=== PATIENT | male | born 1990 | race Caucasian/White ===

== ENCOUNTER 2024-04-14 19:08 | Day surgery (SDC) | payer OTHER ==
[~2024-04-14 19:08] MED LIST: Lidocaine 1% 5 ML VIAL ONE; Midazolam 1 MG/ML 2 ML SDV ONE; Propofol 200 MG/20 ML SDV ONE; Rocuronium 50 MG/5 ML Vial ONE; fentaNYL 250 MCG/5 ML SDV ONE
[2024-04-14] MEDS ORDERED: Dexamethasone 4 MG/ML 5 ML MDV ONE (19:19)
[2024-04-14] MEDS ORDERED: Lactated Ringers 1,000 ML ONE ×2 (19:27→20:02)
[2024-04-14] MEDS ORDERED: Ondansetron 4 MG/2 ML SDV ONE (19:27)
[2024-04-14] MEDS ORDERED: Sugammadex Sodium 200 MG/2 ML VIAL IV ONE (19:27)
[2024-04-14] MEDS ORDERED: cefOXitin 2 GM in Premix Bag 1 BAG IV ONE (19:40)
[2024-04-14] MEDS ORDERED: Propofol 200 MG/20 ML SDV ONE (19:46)
[2024-04-14] MEDS ORDERED: Labetalol 100 MG/20 ML MDV ONE (19:48)
[2024-04-14] MEDS ORDERED: Rocuronium 50 MG/5 ML Vial ONE (19:51)
[2024-04-14] MEDS ORDERED: HYDROmorphone 0.5 MG/0.5 ML Syringe ONE (19:52)
[2024-04-14] MEDS ORDERED: EPINEPHrine 1 MG/ML SDV ONE (19:57)
[2024-04-14] MEDS ORDERED: cefOXitin 2 GM Vial ONE (20:36)
[2024-04-14] MEDS: Bupivacaine 0.5% 30 ML SDV ONE (20:41)
[2024-04-14] MEDS ORDERED: HYDROmorphone 0.5 MG/0.5 ML Syringe IVPUSH PRN (21:33)
[2024-04-14] MEDS ORDERED: Ondansetron 4 MG/2 ML SDV IVPUSH PRN (21:33)
[2024-04-14] MEDS ORDERED: Sodium Chloride 0.9% 10 ML Syringe FLUSH PRN (21:33)
[2024-04-14] MEDS ORDERED: fentaNYL 100 MCG/2 ML SDV IVPUSH PRN (21:33)
[2024-04-14] MEDS ORDERED: Lactated Ringers 1,000 ML IV SCH (21:45)
[2024-04-15] MEDS ORDERED: Sodium Chloride 0.9% 10 ML Syringe FLUSH SCH (09:00)
== END 2024-04-14 22:50 | disposition home or self-care (01) ==
LOC: JD.SDS 19:08 → JD.ED 19:08 → JD.SDS 19:38 → EDSTATUS 20:09 → JD.SDS 22:50
PROVIDERS: ATTEND Surgery
DX: K35.33 Acute appendicitis with perforation, localized peritonitis, and gangrene, with abscess (principal); I88.9 Nonspecific lymphadenitis, unspecified
CPT/HCPCS: 44970; J0171; J0665; J0694; J1100; J1920; J2250; J2405; J2704; J3010; J7120; 00840; J3490